=== PATIENT | female | born 1990 | race Caucasian/White ===

== ENCOUNTER 2022-04-03 15:46 | Emergency (ER) | payer SELFPAY ==
[~2022-04-03] VITALS: Ht 154.9 cm; Wt 59.0 kg
[2022-04-03 15:56] VITALS: BP 117/72
[2022-04-03] MEDS ORDERED: KETOROLAC 30 MG/ML VIAL IM ONE (16:35)
[2022-04-03] MEDS ORDERED: ONDANSETRON 4 MG ODT PO ONE (16:35)
[2022-04-03 16:39] LABS: APPEARANCE,URINE SL CLOUDY (CLEAR); BILIRUBIN,URINE NEGATIVE (NEGATIVE); BLOOD, URINE 3+ (NEGATIVE); COLOR,URINE AMBER (YELLOW); LEUKOCYTE ESTERASE ,URINE NEGATIVE (NEGATIVE); NITRITE, URINE NEGATIVE (NEGATIVE); PH,URINE 6.5 (5.0-9.0); UGLUCOSE NEGATIVE (NEGATIVE)
[2022-04-03 16:49] LABS: BASOPHILS % (AUTO) 0.3 % (0.0-2.0); EOSINOPHILS # (AUTO) 0.1 K/uL (0-0.4); EOSINOPHILS % (AUTO) 0.7 % (0.0-4.0); HEMATOCRIT 39.1 % (36-48); LYMPHOCYTES # (AUTO) 2.4 K/uL (2.5-16.5); MEAN CORPUSCULAR HEMOGLOBIN 31 pg (27-31); MEAN CORPUSCULAR HGB CONC 33 g/dL (33-37); MEAN CORPUSCULAR VOLUME 91.6 fL (80-94); MONOCYTES # (AUTO) 0.8 K/uL (0.8-1.0); MONOCYTES % (AUTO) 5.1 % (1.7-9.3); NEUTROPHILS # (AUTO) 11.7 K/uL (1.8-7.7); NEUTROPHILS % (AUTO) 77.9 % (42.2-75.2); PLATELET COUNT (AUTO) 281 K/uL (140-450); RED BLOOD CELL COUNT(AUTO) 4.27 MIL/uL (4.20-5.40); RED CELL DISTRIBUTION WIDTH 13.5 % (11.6-13.7)
--- NOTE | 2022-04-03 17:00 | NUR ---
PT AMBULATED TO BED 12
--- NOTE | 2022-04-03 17:02 | NUR ---
31/F WALKED IN C/O GEN ABD PAIN ACCOMPANIED BY NV X 3 DAYS. DENIES BLOOD IN VOMIT. AAO4, AMBULATORY, VITALS STABLE. URINE COLLECTED AND SENT TO LAB. BLOOD DRAWN BY TASSEL MAKER. IN GOWN, ON MONITOR. PMH: DENIES
[2022-04-03 17:12] LABS: OTHER CASTS, URINE None Seen /LPF (None Seen); RBC,URINE 20-50 /HPF (0-5); WBC,URINE 0-5 /HPF (0-5)
[2022-04-03 17:18] LABS: ANION GAP 9.8 (8-16); CREATININE 0.7 mg/dL (0.6-1.3); POTASSIUM 3.8 mmol/L (3.5-5.1); TOTAL BILIRUBIN 0.4 mg/dL (0.0-1.0)
[2022-04-03 18:00] VITALS: BP 113/59
[2022-04-03] MEDS ORDERED: CEPH-588 PO (18:25)
[2022-04-03] MEDS ORDERED: NAPR-54 PO (18:25)
[2022-04-03] MEDS ORDERED: ONDA-188 PO (18:25)
== END 2022-04-03 18:35 | disposition home or self-care (01) ==
LOC: MED 15:46
DX: N23 Unspecified renal colic (principal); N39.0 Urinary tract infection, site not specified
CPT/HCPCS: 36415; 74176; 80053; 81001; 81025; 83690; 85025; 96372; 99285; J1885; Q0162